=== PATIENT | female | born 1950 ===

== ENCOUNTER 2025-01-19 07:30 | Inpatient (IN) | payer OTHER ==
[~2025-01-19] VITALS: Ht 154.9 cm; Wt 56.7 kg
[2025-01-19] MEDS ORDERED: COZAAR100 MG PO (08:33)
[2025-01-19] MEDS ORDERED: SYNTHROID100 MCG PO (08:33)
[2025-01-19] MEDS ORDERED: NORVASC2.5 MG PO (08:33)
[2025-01-19] MEDS ORDERED: ZOCOR20 MG PO (08:34)
[2025-01-19 08:35] VITALS: BP 180/80
[2025-01-19 09:21] LABS: HEMATOCRIT 38.3 % (36.0-45.00); HEMOGLOBIN 12.9 g/dL (12.0-15.00); MEAN CELL VOLUME 89.2 fL (80.00-100.00); MEAN CORPUSCULAR HEMOGLOBIN 30.1 pg (27.00-32.0); MEAN CORPUSCULAR HGB CONC 33.7 g/dl (32.0-36.0); PLATELET COUNT 214 K/uL (150-450); RED CELL DISTRIBUTION WIDTH 12.9 % (11.5-14.5)
[2025-01-19 09:23] LABS: PH,URINE 6.5 (5.0-8.0); URINE APPEARANCE Clear; URINE BILIRRUBIN Negative (NEGATIVE); URINE BLOOD Small; URINE COLOR Yellow; URINE GLUCOSE Negative (NEGATIVE); URINE KETONE Negative (NEGATIVE); URINE LEUKOCYTE Moderate; URINE NITRATE Negative; URINE PROTEIN Negative (NEGATIVE); URINE UROBILINOGEN 0.2 E.U./dl
[2025-01-19 09:28] LABS: URINE EPITHELIAL CELLS 44.4 uL (0.0-38.8); URINE RBC 70.1 uL (0.0-20.8); URINE WBC 59.8 uL (0.0-23.2)
[2025-01-19 09:33] LABS: INR 0.98; PARTIAL THROMBOPLASTIN TIME 29.1 SECONDS (22.0-34.0); PROTHROMBIN TIME 10.7 SECONDS (9.0-11.5)
[2025-01-19 09:42] LABS: URINE CAST 0.29 uL (0.0-1.40)
[2025-01-19 09:43] LABS: URINE BACTERIA > 9821.5 uL (0.0-1933)
[2025-01-19 10:29] LABS: CHOL HDL RATIO 2.5 (0-5.0)
[2025-01-19 10:30] LABS: BILIRUBIN TOTAL 0.37 mg/dL (0.3-1.2); CALCIUM 9.2 mg/dL (8.5-10.1); CREATININE SERUM 1.17 mg/dL (0.55-1.02); GFR 45.34; GLOBULINA 3.2 G/DL (2.4-3.5); POTASSIUM 4.26 mEq/L (3.5-5.1); TOTAL PROTEIN 7.2 gm/dL (6.4-8.2)
[2025-01-19 10:53] LABS: RH POSITIVE
[2025-01-25] MEDS ORDERED: ONDANSETRON HCL 2 MG/ML VIAL IV PRN (14:15)
[2025-01-25] MEDS ORDERED: OxyCODONE HCL 5 MG TABLET (ROXICODONE) PO PRN (14:15)
[2025-01-25] MEDS ORDERED: MORPHINE SULFATE 4 MG/ML CARTRIDGE IV PRN (14:15)
[2025-01-25] MEDS ORDERED: SODIUM CHLORIDE 0.45 % 1,000 ML IV SCH (14:15)
[2025-01-25] MEDS ORDERED: BUPIVACAINE HCL 30 ML VIAL IJ ONE (15:00)
[2025-01-25] MEDS ORDERED: VANCOMYCIN HCL 1,000 MG VIAL IR ONE (15:00)
[2025-01-25] MEDS ORDERED: MORPHINE SULFATE 4 MG/ML VIAL IV ONE (15:00)
[2025-01-25] MEDS ORDERED: LIDOCAINE HCL 1%/EPINEPHRINE 20ML VIAL IJ ONE (15:00)
[2025-01-25] MEDS ORDERED: KETOROLAC TROMETHAMINE 60 MG VIAL IM ONE (15:00)
[2025-01-25] MEDS ORDERED: CEFAZOLIN SODIUM 1,000 MG VIAL IV ONE (15:00)
[2025-01-25] MEDS ORDERED: ONDANSETRON HCL 2 MG/ML VIAL IV ONE (16:10)
[2025-01-25] MEDS ORDERED: CEFAZOLIN SODIUM 1,000 MG VIAL IV SCH (17:00)
[2025-01-25] MEDS ORDERED: GABAPENTIN 300 MG CAPSULE PO SCH (17:00)
[2025-01-25 19:20] VITALS: BP 147/78; O2SAT 95
[2025-01-25] MEDS ORDERED: FAMOtidine 20 MG TABLET PO SCH (21:00)
[2025-01-26 00:30] VITALS: BP 96/57; O2SAT 98
[2025-01-26] MEDS ORDERED: LEVOTHYROXINE SODIUM 100 MCG TABLET PO SCH (06:00)
[2025-01-26 06:49] LABS: HEMATOCRIT 32.7 % (36.0-45.00); HEMOGLOBIN 11.6 g/dL (12.0-15.00); MEAN CELL VOLUME 87.6 fL (80.00-100.00); MEAN CORPUSCULAR HEMOGLOBIN 31.1 pg (27.00-32.0); MEAN CORPUSCULAR HGB CONC 35.5 g/dl (32.0-36.0); PLATELET COUNT 154 K/uL (150-450); RED BLOOD COUNT 3.73 M/uL (4.00-6.00); RED CELL DISTRIBUTION WIDTH 13.1 % (11.5-14.5)
[2025-01-26] MEDS ORDERED: ELIQUIS2.5 MG PO (07:44)
[2025-01-26] MEDS ORDERED: DUI500 PO (07:44)
[2025-01-26] MEDS ORDERED: PERCOCET 5-3251 EACH PO (07:44)
[2025-01-26 08:00] VITALS: BP 120/63; O2SAT 98
[2025-01-26] MEDS ORDERED: SENNOSIDES 1 TAB TABLET PO SCH (09:00)
[2025-01-26] MEDS ORDERED: LOSARTAN POTASSIUM 100 MG TABLET PO SCH (09:00)
[2025-01-26] MEDS ORDERED: APIXABAN 2.5 MG TABLET PO SCH (09:00)
[2025-01-26 12:16] LABS: CALCIUM 8.7 mg/dL (8.5-10.1); CREATININE SERUM 1.38 mg/dL (0.55-1.02); GFR 37.48; POTASSIUM 5.31 mEq/L (3.5-5.1)
[2025-01-26 16:03] VITALS: BP 103/66; O2SAT 98
[2025-01-26] MEDS ORDERED: SOD FERRIC GLUC COMPLX/SUCROSE 62.5 MG/5 ML AMPUL IV SCH (17:00)
[2025-01-26] MEDS ORDERED: Cyanocobalamin/Mecobalamin 1 TAB.SL SL SCH (17:00)
[2025-01-26] MEDS ORDERED: VITAMIN B COMPLEX 1 EACH PO SCH (17:00)
[2025-01-27] VITALS: BP 101/58; O2SAT 96
[2025-01-27 07:35] LABS: HEMATOCRIT 30.7 % (36.0-45.00); HEMOGLOBIN 10.6 g/dL (12.0-15.00); MEAN CELL VOLUME 89.4 fL (80.00-100.00); MEAN CORPUSCULAR HEMOGLOBIN 30.8 pg (27.00-32.0); MEAN CORPUSCULAR HGB CONC 34.4 g/dl (32.0-36.0); PLATELET COUNT 154 K/uL (150-450); RED BLOOD COUNT 3.43 M/uL (4.00-6.00); RED CELL DISTRIBUTION WIDTH 12.9 % (11.5-14.5)
[2025-01-27] MEDS ORDERED: IRON FUM,PS/FOLIC ACID/VITC/B3 1 CAP CAPSULE PO SCH (09:00)
[2025-01-27 11:03] VITALS: BP 125/71; O2SAT 100
== END 2025-01-27 18:51 | disposition home or self-care (01) | DRG 470 ==
LOC: O/R 01-25 06:28 → SURH 01-25 07:30 → EDBD 01-25 07:30 → SURH 01-25 09:15 → SURG 01-25 16:14
PROVIDERS: ADMIT Orthopaedic Surgery; ATTEND Orthopaedic Surgery
PROC: 0SRC0J9 Replacement of Right Knee Joint with Synthetic Substitute, Cemented, Open Approach (ICD-10-PCS; principal; 2025-01-25 09:15)
DX: M17.11 Unilateral primary osteoarthritis, right knee (principal); D62 Acute posthemorrhagic anemia; M22.11 Recurrent subluxation of patella, right knee; I10 Essential (primary) hypertension; E03.9 Hypothyroidism, unspecified